=== PATIENT | female | born 1960 | race Caucasian/White ===

== ENCOUNTER 2021-12-03 12:27 | Outpatient (CLI) | payer OTHER, SELFPAY ==
--- NOTE | ~2021-12-03 | MM_ITS ---
EXAMINATION: MM screening xiang BI w best HISTORY: Screening TECHNIQUE: Craniocaudal and mediolateral oblique 3-D tomosynthesis images were obtained and synthetic 2-D images were generated. CAD analysis was submitted and interpreted. COMPARISON: Comparison to multiple prior studies sequentially, with oldest reviewed study dated 05/22. BREAST PARENCHYMAL COMPOSITION: The breasts are heterogeneously dense, which may obscure small masses . FINDINGS: There is no evidence of suspicious mass, calcification, or architectural distortion to sugg est malignancy in either breast. There has been no suspicious interval change. IMPRESSION: 1. No mammographic evidence of malignancy. 2. Recommend routine screening mammography in one year. BI-RADS Category 1: Negative Reviewed, dictated and finalized at location A.
== END 2021-12-03 12:28 | disposition home or self-care (01) ==
LOC: CHSIMG 12:29
PROVIDERS: PCP Internal Medicine; Visit Provider Obstetrics & Gynecology
DX: Z12.31 Encounter for screening mammogram for malignant neoplasm of breast (principal)
CPT/HCPCS: 77063; 77067

== ENCOUNTER 2021-12-15 01:09 | Day surgery (SDC) | payer OTHER, SELFPAY ==
--- NOTE | 2021-12-03 16:09 | PC.NURSE ---
Report to the Outpatient Waiting Room, entrance under the green pavilion located off [facility], at time _1000 on date __12/15/21 . OR Time: __12 PM . - You and your visitor will be asked to self-screen and do not enter if you have any COVID symptoms. - Only one visitor and NO children visitors are allowed at this time. - The patient visitor is requested to leave or wait in car when not with patient due to restrictions. - A mask is required within the hospital. Patients may have clear liquids (water, carbonated beverages, clear teas, apple juice) until 3 hours prior to surgery with a maximum of 20 ounces. - No food from midnight until time of surgery - Infants may have breast milk until 4 hours before surgery, infant formula 6 hours prior to surgery. - Children will be allowed to drink immediately following surgery. If applicable, please bring a bottle or sippy cup to assist with drinking. Juice, water, soda, and popsicles are readily available. For infants on formula, please bring formula the day of surgery. Pacifiers are allowed. Take the following medications with a SIP of water the morning of surgery: Medications to discontinue per physician_VITAMINS Date to take last dose____12/12/21 Please no make-up, nail citizen of [place], hairspray, perfume, deodorant, or body powder the day of surgery. No jewelry (including any body piercings) or valuables the day of surgery, leave them at home. Please take a shower or bath the night before, or the morning of, surgery with an antibacterial soap. Wear comfortable, loose fitting clothing. Children are encouraged to wear pajamas. - Jewelry must be removed prior to entering the operating room. Rings and piercings that are not removed may be cut off. - The hospital will not accept responsibility for valuables. - Please leave all valuables, including medications, at home the day of surgery. If you are going home after surgery, a licensed commercial truck driver must drive you home. - NO public transportation without another adult. - We recommend that an adult stay with you for 24 hours following discharge. - We also recommend that you do not drive, make important decision, drink alcoholic beverages, or take any drugs that were not prescribed by your health care provider for at least 24 hours after your discharge time. For Pediatric surgeries, we recommend two adults accompany the child home (only one inside the building at this time). Follow any additional instructions given to you from your surgeon. If you or anyone in your household have experienced Covid symptoms in the past week, please notify your surgeon or the nurse liaison at the phone number below for possible testing. Telephone instructions given to ___PATIENT and asked if any additional questions and then verbalized understanding. Patient advised to call surgeon office or pre surgery nurse liaison [phone] if any additional questions.
[2021-12-03 16:10] VITALS: BMI 34.0
[2021-12-15] MEDS: ACETAMINOPHEN 500 MG TABLET 1000 MG PO (11:00)
[2021-12-15] MEDS: LACTATED RINGERS 1,000 ML 30 ML IV CONT (11:13)
[2021-12-15 11:30] VITALS: BP 129/77; PULSE 80; RESP 16; TEMP 36.3; O2SAT 97
[2021-12-15 11:30] LABS: Anion Gap 9 mmol/L (8-16); Blood Urea Nitrogen 16 mg/dL (7-17); Calcium 8.8 mg/dL (8.4-10.2); Carbon Dioxide 25 mmol/L (22-30); Chloride 106 mmol/L (98-107); Estimated CRCL calculation 80 ml/min; Estimated Glomerular Filt Rate > 60; Glucose 113 mg/dL (65-110); Potassium 3.9 mmol/L (3.4-5.0); Sodium 140 mmol/L (137-145)
--- NOTE | 2021-12-15 11:51 | PM.IMHP ---
H&P: HPI History of Present Illness Date/Time: 12/15/21 11:51 Chief Complaint: Bleeding Narrative: 61 y/o with several episodes of postmenopausal bleeding. She is known to have a large, fibroid uterus. ultrasound shows poor visualization of the endometrial complex. Review of Systems Review of Systems: All systems reviewed & are unremarkable except as noted in HPI and below PMFSH Past Medical History Medical History Chronic hypertension GERD (gastroesophageal reflux disease) History of goiter Surgical History Surgical History History of thyroid surgery Social History Social History Smoking packs per day: 1 Smoking cigarettes per day: 20.0 Years smoked: 22 Smoking pack-years: 22.00 Smoking status: Former smoker Tobacco type: cigarettes Smoking end date: 04/10/06 Substance use: never Spiritual care concerns: No Meds Home Medications and Allergies Home Medications Medication Instructions Recorded Confirmed Type Adult One Daily Multivitamin 1 tab-cap PO DAILY 12/03/21 12/15/21 History omeprazole magnesium 20 mg 20 mg PO PRN PRN Acid Reflux 12/03/21 12/03/21 History tablet,delayed release (Prilosec OTC) spironolactone 50 mg tablet 50 mg PO DAILY 12/03/21 12/03/21 History verapamil 240 mg tablet,extended 240 mg PO DAILY 12/03/21 12/03/21 History release Allergies Allergy/AdvReac Type Severity Reaction Status Date / Time No Known Drug Allergies Allergy Unknown Other Verified 12/15/21 11:29 Vital Signs Vital Signs - 24 hr 12/15/21 11:30 Temperature 36.3 C L Pulse Rate 80 Respiratory Rate 16 Blood Pressure 129/77 Pulse Oximetry 97 Oxygen Delivery Room Air Exam Const: Orientation/consciousness: patient oriented x3 Other: Well-developed, well-nourished female in no acute distress. Neck: Thyroid: thyroid normal Lymphatic: no lymphadenopathy noted (in neck, axilla or inguinal nodes) Resp: Effort & Inspection: normal respiratory effort Auscultation: clear to auscultation bilaterally Cardio: Rate: regular rate Rhythm: regular rhythm Heart sounds: S1 normal heart sound present and S2 normal heart sound present GI: Other: ABD: Soft, nontender, nondistended. No guarding or rebound tenderness. No hepatosplenomegaly. : General: Yes no CVA tenderness Other: External genitalia: normal female hair distribution, without lesion. Urethral meatus: no lesion, non prolapsed. Bladder: no mass, nontender Vagina: atrophic, without lesion or discharge. No cystocele or rectocele. Cervix: no lesion or discharge. Uterus: large, globular, nontender Adnexa: no mass or tenderness. Anus/perineum: no lesions, nontender Back/Spine/Pelvis: Back: no CVA tenderness Skin: General skin exam: normal color and no rashes or lesions noted Neuro: General: patient oriented x3 Extrem: Other: Extremities: nontender with no edema Psych: Mental Status: mental status grossly normal Affect: normal affect H&P: Results Labs Labs: [facility] 12/15/21 11:11 Sodium 140 Potassium 3.9 Chloride 106 Carbon Dioxide 25 BUN 16 Creatinine 0.70 Glucose 113 H Calcium 8.8 Assessment and Plan Assessment and plan (1) Postmenopausal bleeding: Code(s): N95.0 - Postmenopausal bleeding Status: Acute Assessment and Plan: A: Postmenopausal bleeding in the setting of large fibroid uterus. P: Offered hysteroscopy with dilation and sharp curettage. She understands risks of surgery to include risks of anesthesia, risks of pain, infection, bleeding, blood products, thromboembolic phenomena and damage to adjacent structures such as bowel, bladder, ureters, blood vessels and nerves. She understands all these risks and elects to proceed with surgery.
--- NOTE | 2021-12-15 11:56 | WPDHPUPDATE1 ---
History and Physical Update Update Date/Time: 12/15/21 11:56 History and Physical has been reviewed, including an updated exam of the patient. There are NO changes in the patient's condition. Risks, benefits, and alternatives have been discussed and questions answered. Patient agrees to proceed with procedure.
--- NOTE | 2021-12-15 12:11 | WPDANESEPPF ---
Anes - Initial Pre Proc Eval Procedure: Operation Date: 12/15/21 12:00 Proposed Procedures p Hysteroscopy Dilation and Curettage - Madhav Parisi MD Date/Time: 12/15/21 12:11 Surgeon: Madhav Parisi MD Pre Op Diagnosis: post menopausal bleeding Patient Data Age: 61 Gender: F Height: 1.63 m Weight: 113 kg Last Vital Signs Temp 97.4 F L 12/15/21 11:30 Pulse 80 12/15/21 11:30 Resp 16 12/15/21 11:30 BP 129/77 12/15/21 11:30 Pulse Ox 97 12/15/21 11:30 O2 Del Method Room Air 12/15/21 11:30 Allergies Allergy/AdvReac Type Severity Reaction Status Date / Time No Known Drug Allergies Allergy Unknown Other Verified 12/15/21 11:29 Home Medications Medication Instructions Recorded Confirmed Type Adult One Daily Multivitamin 1 tab-cap PO DAILY 12/03/21 12/15/21 History omeprazole magnesium 20 mg 20 mg PO PRN PRN Acid Reflux 12/03/21 12/03/21 History tablet,delayed release (Prilosec OTC) spironolactone 50 mg tablet 50 mg PO DAILY 12/03/21 12/03/21 History verapamil 240 mg tablet,extended 240 mg PO DAILY 12/03/21 12/03/21 History release Laboratory Tests 12/15/21 11:11 Sodium 140 mmol/L mmol/L (137-145) Potassium 3.9 mmol/L mmol/L (3.4-5.0) Chloride 106 mmol/L mmol/L (98-107) Carbon Dioxide 25 mmol/L mmol/L (22-30) Anion Gap 9 mmol/L mmol/L (8-16) BUN 16 mg/dL mg/dL (7-17) Creatinine 0.70 mg/dL mg/dL (0.7-1.0) Estim Creat Clear Calc 80 ml/min ml/min Estimated GFR > 60 (59 - ) Glucose 113 mg/dL H mg/dL (65-110) Calcium 8.8 mg/dL mg/dL (8.4-10.2) Patient hx anesthesia problems: none Family hx anesthesia problems: none Results Review: All pre-operative results and documents have been reviewed as part of the pre-operative evaluation. [facility] Past Medical History Medical History Chronic hypertension GERD (gastroesophageal reflux disease) History of goiter Surgical History Surgical History History of thyroid surgery Social History Social History Smoking packs per day: 1 Smoking cigarettes per day: 20.0 Years smoked: 22 Smoking pack-years: 22.00 Smoking status: Former smoker Tobacco type: cigarettes Smoking end date: 04/10/06 Substance use: never Spiritual care concerns: No Anes - Eval Final PreProcedure Day of Procedure 12/15/21 12:11 Patient weight: morbidly obese Heart: regular rate and rhythm Lungs: clear to auscultation Airway: Mallampati scale class II Neurological: alert and oriented Last oral intake: >/= 8 hours ASA classification: III Emergent: no Anesthetic plan: proceed Anesthesia type and monitoring: general GIVS and standard monitoring Results Review: All pre-operative results and documents have been reviewed as part of the pre-operative evaluation. Informed Consent: The patient's anesthetic plan and its attendant risks and benefits were discussed with the patient/family/POA. Questions were solicited and answers provided to the satisfaction of the patient/family/POA.
[2021-12-15] MEDS: LIDOCAINE HCL 1% PF 30 ML VIAL 10 ML INFILTRATE (12:25)
--- NOTE | 2021-12-15 12:43 | W.PM.PROC2 ---
Procedure Note - Detailed Date of Procedure 12/15/21 Pre-op Diagnosis Postmenopausal bleeding Post-op Diagnosis Same Procedure Performed Hysteroscopy Dilation and sharp curettage Surgeon Madhav Parisi MD Anesthesia MAC and Local (1% lidocaine paracervical block) Findings Large fibroid uterus. Atrophic endometrium, submucous fibroid. Description of Procedure The patient was taken to the operating room where she was prepared and draped in the usual sterile fashion in the dorsal lithotomy position. The bladder was drained with a red rubber catheter. A sterile speculum was placed into the vagina. The anterior lip of the cervix was grasped with single-tooth tenaculum. Ten mL of 1% lidocaine was administered in a paracervical block. The cervix was then gently dilated using Hegar dilators until an 8 mm dilator could be passed. Hysteroscopy was performed using sterile saline as a distention medium. Findings are as noted above. Sharp curettage was then performed, and endometrial curettings were collected on a Telfa pad and passed off to be sent to pathology. Hemostasis was excellent. Sponge, lap, needle and instrument counts were correct. The patient was awakened and taken to the recovery room in stable condition. I was present and scrubbed through the entire procedure. Implants None Estimated Blood Loss 30 Drains No Packing No Pathology Yes (Endometrial curettings) Complications None Condition Stable Disposition PACU
[2021-12-15 12:44] VITALS: BP 110/64; PULSE 72; RESP 12; O2SAT 96
[2021-12-15 13:10] VITALS: BP 104/61; PULSE 67; RESP 20
[2021-12-15 13:40] VITALS: BP 126/73; PULSE 61; RESP 20
== END 2021-12-15 13:57 | disposition home or self-care (01) ==
PROVIDERS: Anesthesiology; PCP Internal Medicine; Visit Provider Obstetrics & Gynecology
PROC: 0U5B8ZZ Destruction of Endometrium, Via Natural or Artificial Opening Endoscopic (ICD-10-PCS; CPT 58563; principal; 2021-12-15 12:00)
DX: N95.0 Postmenopausal bleeding (principal); D25.0 Submucous leiomyoma of uterus; I10 Essential (primary) hypertension; K21.9 Gastro-esophageal reflux disease without esophagitis; Z87.891 Personal history of nicotine dependence; E66.01 Morbid (severe) obesity due to excess calories; Z68.41 Body mass index [BMI] 40.0-44.9, adult
CPT/HCPCS: 58558; 36415; 80048; 88305; A9270; J1100; J1885; J2001; J2250; J2704; J3010; J7030; J7120

== ENCOUNTER 2022-12-15 12:26 | Outpatient (CLI) | payer OTHER, SELFPAY ==
--- NOTE | ~2022-12-15 | MM_ITS ---
EXAMINATION: MM screening xiang BI w best HISTORY: Screening mammogram TECHNIQUE: Craniocaudal and mediolateral oblique 3-D tomosynthesis images were obtained and synthetic 2-D images were generated. CAD analysis was submitted and interpreted. COMPARISON: 12/03/2021, 04/2018 bilateral screening mammogram examinations BREAST PARENCHYMAL COMPOSITION: There are scattered areas of fibroglandular density. FINDINGS: There is no evidence of suspicious mass, calcification, or architectural distortion to sugg est malignancy in either breast. There has been no suspicious interval change. IMPRESSION: 1. No mammographic evidence of malignancy. 2. Recommend routine screening mammography in one year. BI-RADS Category 1: Negative Reviewed, dictated and finalized at location A.
== END 2022-12-15 12:27 | disposition home or self-care (01) ==
LOC: CHSIMG 12:27
PROVIDERS: PCP Internal Medicine; Visit Provider Obstetrics & Gynecology
DX: Z12.31 Encounter for screening mammogram for malignant neoplasm of breast (principal)
CPT/HCPCS: 77063; 77067

== ENCOUNTER 2024-01-01 11:58 | Outpatient (CLI) | payer OTHER, SELFPAY ==
--- NOTE | ~2024-01-01 | MM_ITS ---
EXAMINATION: MM screening xiang BI w best HISTORY: Screening TECHNIQUE: Craniocaudal and mediolateral oblique 3-D tomosynthesis images were obtained and synthetic 2-D images were generated. CAD analysis was submitted and interpreted. COMPARISON: Comparison to multiple prior studies sequentially, with oldest reviewed study dated 06/18. BREAST PARENCHYMAL COMPOSITION: Dense: The breasts are heterogeneously dense, which may obscure small masses FINDINGS: There is no evidence of suspicious mass, calcification, or architectural distortion to sugg est malignancy in either breast. There has been no suspicious interval change. IMPRESSION: 1. No mammographic evidence of malignancy. 2. Recommend routine screening mammography in one year. BI-RADS Category 1: Negative Reviewed, dictated and finalized at location B.
== END 2024-01-01 11:59 | disposition home or self-care (01) ==
LOC: CHSIMG 12:01
PROVIDERS: PCP Internal Medicine; Visit Provider Internal Medicine
DX: Z12.31 Encounter for screening mammogram for malignant neoplasm of breast (principal)
CPT/HCPCS: 77063; 77067

== ENCOUNTER 2025-01-01 13:05 | Outpatient (CLI) | payer OTHER, SELFPAY ==
--- OUTSIDE RECORDS SUMMARY | 2013-07-11 09:10 | XMS_ITS | Continuity of Care Document ---
Author Organization [facility] Address [address] [place] [address] [address] [place] [address] Phone Care Team Providers Care Oracle Database Analyst Name Role Phone Korey MANCINI, Jeramy Unavailable Unavailable Allergies, Adverse Reactions, Alerts Substance Reaction Status Criticality ibuprofen Active No Information sulfanilamide Hives/Skin Rash Active No Informat ion Medications Medication Instructions Dosage Effective Dates (start - stop) Status Comments Effexor XR 150 mg capsule,extended release 2 tabs qd - Active [place] 7.5 mg-325 mg tablet take 1 tablet by oral route every 6 hours as needed for pain - Active meloxicam 15 mg tablet take 1 tablet by oral route every day 15 MG - Active Ambien 10 mg tablet take 1 tablet by ora l route every day at bedtime as needed 10 MG - Active Antacid 550 mg-110 mg chewable tablet prn - Active cranberry 400 mg capsule 1 po qd - Active Milk Thistle Extract 140 mg capsule po qd - Active Vitamin D3 1,000 unit capsule 2 po qd - Active Procedures Procedure Date URINE DIPSTICK OCCULT BLOOD TEST PAP SMEAR/ SPECIMEN COLLECTION 14 PREV VISIT, EST, AGE 40-64 OFFICE/OUTPATIENT VISIT, EST OFFICE/OUTPATIENT VISIT, NEW Advance Directives Directive Yes / No Effective Date File Name No Information Encounters Encounter Description Practice Location Reason(s) For Visit Diagnoses Date Provider Providers Copied on Encounter [facility], [address], [place], [place], [id number], [place] tel:[phone] [facility] No Information 4 Korey Deshpande. [address], [address], [place], [address], [place]. tel:[phone] [facility], [address], [place], [id number], [place] [phone] [facility] No Information 4 Korey Deshpande. [address], [address], [place], [address], [place]. [phone] PREV VISIT, EST, AGE 40-64 [facility], [address], [place], [place], [id number], [place] tel:[phone] [facility] preventive exam (chief complaint)c hronic pain (chief complaint) Gynecological ExaminationGENER AL PHYSICAL EXAMCHRONIC PAIN SYNDROME 4 [facility]. [address], [address], [place], [place], [id number] , [place]. [phone] Referring Provider: Danielle Barnes, [address], [place], [address] . tel:[phone] OFFICE/OUTPA TIENT VISIT, [facility], [address], [place], [place], [id number], [place] tel:[phone] [facility] ear pain (chief complaint) Temporomandibula r joint disorders, arthralgia of temporomandibula r jointCHRONIC PAIN SYNDROMECervical spondylosis without myelopathyMajor depressive affective disorder, single episode, moderate degree 3 [facility] Danielle. [address], [address], [place], [place], [id number] , . tel:[phone] Referring Provider: Danielle Barnes, [address], [place], [address] . tel:[phone] Family History Family Member Type Diagnosis Age At Onset Problem (finding) Family history of Cance r Father Problem (finding) Cancer Problem (finding) Family history of alcoh olism Payers Payer name Insurance type Covered alliance party ID Authoriza tion(s) [facility] [id number] Social History Type Description Quantity Date Captured Comments Alcohol Use Details Unknown Caffeine Use Details Unknown Tobacco Use Status No Information Smoking Status No Information Smoking Tobacco Use Details Cigarette: Years Used 35 Cigarette: 1 Packs per day, Pack Year: 35 Sex Female Chief Complaint And Reason For Visit No Information Reason For Referral Reason For Referral No Information Plan Of Treatment Date Type Action Status Referral Ordered: MAMMOGRAM, SCREENING ordered Future Order: Lab Order CMP ([id number]), S ent on: Sent Future Order: Lab Order FSH ([id number]), S ent on: Sent Future Order: Lab Order LIPID PA AZRA ([id number]), Sent on: Sent Future Order: Lab Order TSH REFL EX ([id number]), Sent on: Sent Future Order: Lab Order Vitamin D, 25 ([id number]), Sent on: Sent History Of Present Illness Encounter Date Complaint History Of Prese nt Illness chronic pain Hx of neck and b ack pain. C spine was ordered last month but she didn't get it done. Notes several knots on her body that are painful to touch only. L > R lateral hips, R lower leg and ankle. She has been having referred pain from lateral R hip, burning, with aching in the entire thigh. She is almost out of her norco 10s and suggests that maybe she could try 7.5 as she had withdrawl from cutting the 10s in half. She wants to get off the the hydrocodone but had withdrawl symptoms when she cut the 10s in half. preventive exam Last LMP was 02/2011. Her menses is absent. Details: patient had an ablation. Negative for: breast discharge, breast lump(s) and breast pain. Positive for: breast self exam. Pertinent negatives include abnormal bleeding and vaginal discharge. ear pain (comments) Was told she had fluid behind the eardrum and was started on augmentin. she still has an aching in front of her ear. ear pain The patient stat es the earache is in the left ear. Additional information: Previous pt of Dr Corrales but has not had a pcp since he left his practice. Has hx of chronic pain in her neck due to arthritis. Went to [facility] 10 day ago for ear pain and was told she had flui Functional Status Date Functional Assessmen t No Information Instructions Date Instruction Additional Infor mation No Information Assessments Type Assessment Date No Information Patient Care Teams Name Effective Dates (start - stop) Status Members No Information
--- OUTSIDE RECORDS SUMMARY | 2015-04-07 10:30 | XMS_ITS | Continuity of Care Document ---
Author Organization [facility] Address [address] [place] [address] Phone Care Team Providers Care Biomass Plant Technician Name Role Phone Bienvenido Moore MD, MD Unavailable Unavailab le Allergies, Adverse Reactions, Alerts Substance Reaction Status Criticality ibuprofen Active No Information Sulfa (Sulfonamide Antibiotics) Active No Information Medications Medication Instructions Dosage Effective Dates (start - stop) Status Comments RESTASIS 0.05% OPHTH EMULSION 30'S INSTILL ONE DROP IN THE LEFT EYE EVERY 12 HOURS 1 drop - Active AMBIEN (unknown strength) Not Available - Active REFRESH TEARS (unknown strength) Not Available - Active prednisolone acetate 1 % eye drops,suspension instill 1 drop by ophthalmic route 4 times every day into affected eye(s) x 1 week. - No Longer Active doxycycline hyclate 50 mg capsule take 1 capsule by oral route every 12 hours 50 MG - No Longer Active CYMBALTA (unknown strength) Not Available - No Longer Active Procedures Procedure Date REFRACTION POSTOP FOLLOW-UP VISIT EYE EXAM ESTABLISHED PAT Microfluid Analysis Utilizing An [facility] Microfluid Analysis Utilizing An [facility] IMMUNOASSAY, NONANTIBODY IMMUNOASSAY, NONANTIBODY OFFICE/OUTPATIENT VISIT, EST POSTOP FOLLOW-UP VISIT POSTOP FOLLOW-UP VISIT POSTOP FOLLOW-UP VISIT Wavefront Lasik Standard Intralase Lasik Fac Fee 2014 Standard Custom Lasik Fac Fee 5 [facility]front Lasik Standard Intralase Lasik Fac Fee 2014 Standard Custom Lasik Fac Fee 5 Lasik Evaluation Lasik Evaluation Contact lens pmma spherical REFRACTION EYE EXAM & TREATMENT Contact Lens Evaluation OFFICE/OUTPATIENT VISIT, NEW Advance Directives Directive Yes / No Effective Date File Name Resuscitation Not Answered N/A N/A Life Support Not Answered N/A N/A Intubation Not Answered N/A N/A Antibiotics Not Answered N/A N/A IV Fluid Support Not Answered N/A N/A Tube Feed Not Answered N/A N/A Other Directive N/A N/A WARNING:The information contained in this section is historical and is provided for information only and does not constitute a legal document or any assurance that the information is still accurate. Please verify the information with the cunningham of the legal document before using it for clinical purposes. Encounters Encounter Description Practice Location Reason(s) For Visit Diagnoses Date Provider Providers Copied on Encounter [facility], [address] [place] [address], [id number] tel:[phone] [facility] Myopia, bilateralDry eye syndrome of bilateral lacrimal glands 5 Teresa Faria. [facility], [address] [place] [address] [place], [id number]. tel:[phone] [facility], [address] [place] [address] [place], [place], [id number] tel:[phone] [facility] [place] Keratoconjunct sicca, not specified as Sjogren's, bilateralMyopi a, bilateral 0201 5 Rolo Gary. [facility], [address] [place] [address] [place], [id number]. tel:[phone] OFFICE/OUTPA TIENT VISIT, EST [facility], [address] [place], [place], [id number] tel:[phone] RAMSEY Rudd Keratoconjunct sicca, not specified as Sjogren's, bilateral Nov- 2- 5 Rolo OD Abdirahmna. [facility], [address] [place], [place], [id number]. tel:[phone] [facility], [address], [place], [id number] tel:[phone] [facility] Myopia Apr-1 3-201 5 No Information [facility], [address] [place], [place], [id number] tel:[phone] [facility] Myopia Mar-0 9- 5 No Information [facility], [address] [place], [place], [id number] tel:[phone] [facility] MyopiaPresbyop iaTear film insufficiency, unspecified Mar-0 3-201 5 Teresa Faria. [facility], [address], [place], [id number]. tel:[phone] [facility], [address] [place], [place], [id number] tel:[phone] [facility] No Information Jun-0 2- 5 Teresa Faria. [facility], [address] [place], [id number]. tel:[phone] [facility], [address] [place], [place], [id number] tel:[phone] [facility] [place] No Information May-2 6 5 Teresa Faria. [facility], [address] [place], [id number]. tel:[phone] [facility], [address] [place], [id number] tel:[phone] [facility] MyopiaPresbyop iaTear film insufficiency, unspecified 5 Teresa Faria. [facility], [address] [place] [place], [id number]. [phone] [facility], [address] [place], [id number] tel:[phone] RAMSE[facility] [place] MyopiaTear film insufficiency, unspecified 5 No Information [facility], [address] [place], [id number] tel:[phone] [facility] [place] No Information 4 Rolo Gary. [facility], [address] [place], [id number]. tel:[phone] [facility], [address] [place], [id number] tel:[phone] RAM[facility] [place] MyopiaTear film insufficiency, unspecified 4 Rolo Gary. [facility], [address] [place], [id number]. tel:[phone] OFFICE/OUTPA TIENT VISIT, NEW [facility], [address] [place], [id number] tel:[phone] RAMSEY [place] Conjunctivitis , unspecified 3 Alondra Menezes. [facility], [facility] [place] [place], [id number]. tel:[phone] Family History Family Member Type Diagnosis Age At Onset Mother Problem (finding) No Family hist ory of No history of Cardiovascular disease Payers Payer name Insurance type Covered alliance party ID [facility] 12 [id number] Social History Type Description Quantity Date Captured Comments Alcohol Use Details No Caffeine Use Details Unknown Tobacco Use Status Ex-smoker Smoking Status Former smoker Sex Female Chief Complaint And Reason For Visit No Information Reason For Referral Reason For Referral No Information History Of Present Illness Encounter Date Complaint History Of Prese nt Illness No Information Functional Status Date Functional Assessmen t No Information Instructions Date Instruction Additional Infor bruna Myopia, bilateral OU Condition: established, stable. - Discussed both eyes have good vision, right eye has good distance and left eye has good near vision, this is monovision. Blur is not due to vision correction. Related to Myopia, bilateral Insufficiency, tear film, bilateral OU Condition: established, stable. - Does have mild dry eyes that could be causing some blur. Rec continue Restasis twice daily as previously directed and artificial tears as needed through the day. Discussed can put plugs in tear ducts to stop tears from draining while in office today, this could decrease blurry episodes. Discussed low risk and plugs can be removed if do not help. Detailed description of procedure. Patient to schedule appt for plugs. Related to Insufficiency, tear film, bilateral Keratoconjunct sicca , not specified as Sjogren's, OU Condition: established, improving with treatme. - Recommend tear lab testing for dry eye symptoms, reviewed tear lab results with patient. The patient has borderline dry eye OD, OS. Continue with the Restasis drops bid OU. Refrigerate the vials to add a cooling sensation. The patient may also add Refresh Optive or Systane Ultra drops PRN 2-3x/d in addition to the Restasis drops OU. Refrigerate these as well. Related to Keratoconjunct sicca, not specified as Sjogren's, Follow up - Return i n 2-3 weeks with Bienvenido Moore MD for Lasik eval. Related to Myopia, bilateral Myopia, bilateral OU Condition: established slightly worse. - After pinhole testing, it revealed that the patient may have had some residual refractive correction. The OD had become a little more myopic: -0.50 DS. The OS is holding steady at 20/60 at distance, and with -1.75 DS in power it becomes 20/20. This OS was intended to be for near and it works fine for this. Recommended with the patient to see Dr. LONG for a lasik consult to see if a touch up would be advised. Otherwise the patient could wear a daily contact in the OD to see better at distance. Related to Myopia, bilateral Follow up - Return i n 3-4 weeks with Rolo, Abdirahman OD for Quick, Inflammadry, and Tear Lab. Related to Keratoconjunctivitis sicca, not specified as Sjogr Keratoconjunctivitis sicca, not specified as Sjogr OU Condition: established slightly worse. - Rx'd po doxycycline 50 mg capsules bid x 30 days. Use PA 1% i gtt OU QID x 1 week then stop. In the AM and PM use warm compresses. Continue to use Restasis drops bid OU. Follow-up in 1 month with a tear lab and inflammadry test. If the eyes feel worse call to be seen sooner. Related to Keratoconjunctivitis sicca, not specified as Sjogr - Return in 2 months with Gerhard Balbuena OD for post-op. Related to Myopia Myopia - Artificial Tears as needed. Call with changes. Educational materials provided: Related to Myopia Follow up - Return i n 1 month with Gerhard Balbuena OD for post-op. Related to Myopia Myopia - Discontinue Durezol and Ofloxacin. Artifical Tears 4 times per day. From this point foward, things should only get better. Call stat if anything worsens. Educational materials provided:cont restasis bid OU Related to Myopia Follow up - Return in as schedul ed Related to Myopia Myopia OU Condition: established, stable. - s/p Lasik OU - smooth and clear flaps. Continue Ofloxacin TID until gone. Use Durezol 1 drop 2 times daily x 1 week Can use Artificial Tears as needed. ok to d/c goggles. No swimming for 1 week. VA should gradually improve over time. generally within 1-3 weeks. Related to Myopia Presbyopia OU Condit ion: established, stable. - see plan # 1 Related to Presbyopia Tear film insufficie ncy, unspecified OU Condition: established slightly worse. - discussed with patient there is some dryness seen today. OK to r/s restasis this upcoming weekend 1 drop OU BID. ok to use artificial tears as needed. Explained as surface clears vision should begin to improve Related to Tear film insufficiency, unspecified Follow up - lasik with RBP Relat ed to Myopia Presbyopia OU Condit ion: established, stable. - Discussed monovision as an option to reduce dependency on glasses for near vision. Monovision is a compromise of vision and is not perfect. If monovision is not done and both eyes are set for distance then pts will most likely need to wear readers for near tasks. If pt is unable to tolerate monovision then it can always be enhanced for distance.Cost of enhancement is $350. Patient understands may notice increase glare at night time due to monovision. explained may have a pair of glasses made for night driving . demonstrated monovision with loose lenses . Patient. Patient understands and elects to proceed Related to Presbyopia Myopia OU Condition: established, stable. - Discussed Lasik at length with eye model. Intralase newer, safer technology to create thin flap. Lasik can cause dryness and patient may need AT s/p for months. Explained will have some burning / stinging during the day of surgery. The Xanax will help deal with that and give you a good nap. Fully expect patient to be seeing good enough to drive themselves in the next Am. explained to patient after anes wears off there is a periord of up to 3 hours of discomfort. the xanax helps with getting a good nap. 2 % of eyes may need enhancements maybe slightly higher due to high amount of correction needed. . Not many problems with infections due to antibiotic. Dry eye is the number one thing we have to deal with s/p lasik. Patient understand R/B/A and elects to proceed with conventional intralase OD Conventional Intralase OS (mono) . Xanax RX given to patient. Educational materials provided : Lasik video Related to Myopia Myopia OU Condition: established, stable. - discussed with patient due to small pupil size will need to proceed with conventional treatment OU Related to Myopia Tear film insufficie ncy, unspecified OU Condition: established, stable. - explained to patient there is dryness seen today with lissamine green / however not to dry to proceed with lasik. Explained dryness will increase s/p lasik. advised patient to begin restasis use 1 drop OU BID / If unable to tolerate ok to use artificial tears. Related to Tear film insufficiency, unspecified Follow up - Return i n Next available with Bienvenido Moore MD for Lasik eval with RP. Related to Myopia Myopia OU - Return t o clinic for a LASIK evaluation with Dr. Moore. Patient watched eyemaginations LASIK, during the procedure.Educational materials provided:mild RA per pt Related to Myopia Tear film insufficie ncy, unspecified OU - Restasis twice a day in both eyes. Educational materials provided: Related to Tear film insufficiency, unspecified Myopia OU Condition: new prob, no addtl w/u needed. - New glasses Rx given, Stable exam call with vision changes.CLRx given: ELAINE 8.4/14.0 -3.75/-4.00 DS, replace every two weeks, no sleeping in lenses. CL boris: Puremoist. Related to Myopia Follow up - Return i n 1 year with Abdirahman Seth OD for Complete. Related to Myopia Dry Eye Syndrome OU Condition: new prob, no addtl w/u needed. - Monitor, use systane for contacts as a rewetting agent prn. We may consider early use of Restasis if patient elects to go through for lasik. Related to Dry Eye Syndrome Follow up - Return in PRN Relate d to Conjunctivitis, unspecified Conjunctivitis, unsp ecified OU Condition: new prob, no addtl w/u needed. - Discussed with pt that eyes look pretty good today. Possible previous conjuntivitis. Stay out of cl's for 1 week. Explained to pt that sometimes the drops used for infection can become irritating Cut back Cipro one drop three times a day ou for 3-4 days. Pt to call if any worsening. Related to Conjunctivitis, unspecified Assessments Type Assessment Date No Information Patient Care Teams Name Effective Dates (start - stop) Status Members No Information
--- OUTSIDE RECORDS SUMMARY | 2024-03-14 07:24 | XMS_ITS | Continuity of Care Document ---
Author Organization [facility] Address [address] [place] [address] Phone Care Team Providers Care Financial Data Analyst Name Role Phone Brenton MANCINI MD, Kathie Unavailable Unavailable Allergies, Adverse Reactions, Alerts Substance Reaction Status Criticality shrimp Active No Information hydroxyzine Active No Information gabapentin Active No Information ibuprofen Active No Information Sulfa (Sulfonamide Antibiotics) Active No Information pregabalin Active No Information Medications Medication Instructions Dosage Effective Dates (start - stop) Status Comments Unknown Medication patient wears CPAP for sleep apnea - Active Vitamin D3 25 mcg (1,000 unit) tablet take 1 tablet by oral route twice daily - Active Ventolin HFA 90 mcg/actuation aerosol inhaler inhale 1 puff by inhalation route every 4 - 6 hours as needed - Active Amitiza 24 mcg capsule take 1 capsule by oral route 2 times every day with food and water 24 MCG - Active Antacid Extra-Strength 168 mg calcium (420 mg) chewable tablet take as needed - Active hydrocodone 10 mg-acetaminophen 325 mg tablet take 1 tablet by oral route every 4 - 6 hours as needed for pain 1.00 tablet - Active milk thistle 175 mg tablet take two daily - Active oxcarbazepine 300 mg tablet take 1 tablet by oral route every day 300 MG - Active trazodone 100 mg tablet take 0.5 tablet by oral route 2 times every day after meals 50 MG - Active apple cider vinegar 500 mg tablet takes 1 tab po daily - Active duloxetine 30 mg capsule,delayed release take 1 capsule by oral route twice daily - Active loratadine 10 mg tablet take 1 tablet by oral route every day 10 MG - Active Tirosint 75 mcg capsule take 1 capsule by oral route every day 75 MCG - Active venlafaxine ER 150 mg tablet,extended release 24 hr take 1 tablet by oral route every day in the morning at the same time each day with food 150 MG - Active Procedures Procedure Date Echo, 2D Complete ACP Disc And Doc, No Surrogate Documente d Office Visit Telehealth Level 4 021 CTA, W/o Contrast, Calcium Scoring Echo, 2D Complete EKG With Interp And Report New Pt Office Visit Level 4 ACP Disc And Doc, Surrogate Documented D IO-Holter 24 Hr Advance Directives Directive Yes / No Effective Date File Name No Information Encounters Encounter Description Practice Location Reason(s) For Visit Diagnoses Date Provider Providers Copied on Encounter [facility], [address], [place], [address], [place] tel:[phone] Wendy CVM No Information Brenton MANCINI Kathie. [facility], [address], [place], [place], [id number], [place]. tel:[phone] [facility], [address], [place], [address], [place] tel:[phone] DX Wendy CVM Heart disease, unspecifiedN onrheumatic mitral (valve) insufficienc yDyspnea, unspecifiedC hest pain, unspecifiedC ardiac murmur, unspecified Aug-2 5-202 1 No Information Referring Provider: Leatha Rinaldi APN, [facility] [address], [place], [address]. tel:[phone] Office Visit Telehealth Level [address] [facility], [address], [place], [address], [place] tel:[phone] [place] CVM Cardiovascul ar Review (chief complaint) ROGERS (dyspnea on exertion)Non rheumatic mitral valve regurgitatio n 1 Nimco Zhang. [facility], [address], [place], [place], [id number], [place]. tel:[phone] Referring Provider: Leatha Rinaldi APN, [facility] [address], [place], [address]. tel:[phone] [facility], [address], [place], [address], [place] tel:[phone] DX [place] CVM Chest pain, unspecifiedD yspnea, unspecified 0 Chris Martinez. [facility], [address], [place], [place], [id number], [place]. tel:[phone] Referring Provider: Michelle Mohamud, [facility] [address], [place], [address]. tel:[phone] [facility], [address], [place], [address], [place] tel:[phone] DX Wendy CVM Nonrheumatic mitral (valve) insufficienc yDyspnea, unspecifiedC hest pain, unspecifiedC ardiac murmur, unspecified 201 9 No Information Referring Provider: Michelle Mohamud, [facility] [address], [place], [address]. tel:[phone] New Pt Office Visit Level [address] [facility], [address], [place], [address], [place] tel:[phone] [facility] CV Chest Pain (chief complaint)Dy spnea (chief complaint)Ca rdiovascular Review (chief complaint) Chest painDyspneaM urmur, cardiac 9 Chris Martinez. [facility] , [address], [place], [place], [id number], [place]. tel:[phone] Referring Provider: Lorie Caraballo, [facility], [place], [address]. tel:[phone] [facility], [address], [place], [address], [place] tel:[phone] [facility] No Information 2 Deo Rodriguez. [facility] , [address], [place], [place], [id number], [place]. tel:[phone] Referring Provider: Clif Corrales [address], [address]. tel:[phone] Family History Family Member Type Diagnosis Age At Onset Sister Problem (finding) malignant neoplasm of l michell Father Problem (finding) Cancer, unknown Payers Payer name Insurance type Covered libertarian ID Authormukesha reyna(s) [facility] [id number] Social History Type Description Quantity Date Captured Comments Alcohol Use Details Unknown Caffeine Use Details Unknown Tobacco Use Status No Information Smoking Status No Information Sex Female Chief Complaint And Reason For Visit No Information Reason For Referral Reason For Referral No Information Plan Of Treatment Date Type Action Status Future Order: Radiology Order Ec ho Complete ([place]), Appointment on: , Collected on: Ordered Future Order: Radiology Order CT Calcium Score (CT), Appointment on: , Collected on: Ordered Future Order: Radiology Order Ec carolee Gallegos ([place]), Appointment on: , Collected on: Ordered History Of Present Illness Encounter Date Complaint History Of Prese nt Illness Cardiovascular Review She has begum d no chest discomfort suggestive of ischemia. The patient denies orthopnea, PND, ROGERS, or edema. Ms. Brown has not had palpitations, syncope or near syncope. She denies claudication. There is no discoloration or ulceration of the lower extremities. She has had no TIA or stroke-like symptoms. The patient has no symptoms attributable to valvular heart disease. Chest Pain The patient comp lains of chest discomfort. The patient rates the pain as moderate. The discomfort is located in the substernal area. The patient describes the pain as pressure. It is associated with dyspnea and nausea. Dyspnea Cardiovascular Review The patien t has symptoms suggestive of atypical chest pain. Ms. Brown has ROGERS. She denies orthopnea, PND or edema. Ms. Brown has not had palpitations, syncope or near syncope. She denies claudication. There is no discoloration or ulceration of the lower extremities. She has had no TIA or stroke-like symptoms. The patient has no symptoms attributable to valvular heart disease. Functional Status Date Functional Assessmen t No Information Instructions Date Instruction Additional Infor bruna Healthy Choice Educational Mater ials PCP Wellness Visit PCP Wellness Visit Assessments Type Assessment Date No Information Patient Care Teams Name Effective Dates (start - stop) Status Members No Information
--- OUTSIDE RECORDS SUMMARY | 2024-09-26 05:37 | XMS_ITS | Continuity of Care Document ---
Author Organization [facility] Address [address] [address] Phone Care Team Providers Care Race Engine Builder Name Role Phone Caren Santy CAMPOSssica Unavailable Unavailable Allergies, Adverse Reactions, Alerts Substance Reaction Status Criticality pregabalin Active No Information ibuprofen Active No Information Sulfa (Sulfonamide Antibiotics) Active No Information Medications Medication Instructions Dosage Effective Dates (start - stop) Status Comments Estrace 0.01% (0.1 mg/gram) vaginal cream Apply one gram to the vaginal opening/vault 3-4 times a week; do NOT use applicator - Active AZO BLADDER CONTROL (unknown strength) Not Available - Active FLONASE ALLERGY RELIEF (unknown strength) Not Available - Active HYDROCODONE BITARTRATE ER (unknown strength) Not Available - Active GLUCOSAMINE CHONDROITIN (unknown strength) Not Available - Active ATORVASTATIN CALCIUM (unknown strength) Not Available - Active MAGNESIUM (unknown strength) Not Available - Active levothyroxine 13 mcg capsule take 1 capsule by oral route every day 13 MCG - Active fexofenadine 60 mg tablet take 1 tablet by oral route 2 times every day 60 MG - Active lisinopril 5 mg tablet take 1 tablet by oral route every day 5 MG - Active metformin 500 mg tablet take 1 tablet by oral route 2 times every day with morning and evening meals 500 MG - Active omeprazole 20 mg capsule,delayed release take 1 capsule by oral route every day 30 minutes to 1 hour before a meal 20 MG - Active trazodone 50 mg tablet take 1 tablet by oral route 3 times every day after meals 50 MG - Active duloxetine HCl (bulk) 100 % powder - Active Procedures Procedure Date OV - Established Patient Urinalysis - Automated OV - Established Patient Urinalysis - Automated LOCM 300-399mg/ml Iodine, 1ml 30 2023 LOCM 300-399mg/ml Iodine, 1ml [address] Abd/Pelvis W/O & W Contrast LOCM 300-399mg/ml Iodine, 1ml Cystourethroscopy Urinalysis - Automated OV - Established Patient Urinalysis - Automated OV - Established Patient Urinalysis - Automated OV - Established Patient Urinalysis - Automated OV - Established Patient Urinalysis - Automated OV - New Patient Urinalysis - Automated Advance Directives Directive Yes / No Effective Date File Name No Information Encounters Encounter Description Practice Location Reason(s) For Visit Diagnoses Date Provider Providers Copied on Encounter [facility], [address] [place] [address], [id number], [place] tel:[phone] [facility] No Information 5 Caren Odell. [address] [place] [address], [id number] , [place]. tel:[phone] OV - Established Patient [facility], [address] [place] [address], [id number], [place] tel:[phone] [facility] Postmenopausal atrophic vaginitisBenign essential microscopic hematuria 5 Caren Odell. [address] [place] [address], [id number] , [place]. tel:[phone] Referring Provider: Clif Hernandez, [address] [place] [address], [id number]. tel:[phone] OV - Established Patient [facility], [address] [place] [address], [id number], [place] tel:[phone] [facility] Personal history of urinary (tract) infections 5 Anwar Taha. [address] [place] [address], [id number] , [place]. tel:[phone] Referring Provider: [address], [place], [address]. tel:[phone] [facility] , [address] [place] [address], [id number], [place] tel:[phone] [facility] Hematuria, unspecifiedBenign essential microscopic hematuria 4 Anwar Taha. [address] [place] [address], [id number] , [place]. tel: [phone] Referring Provider: [address], [place], [address]. tel:[phone] OV - Established Patient [facility] , [address] [place] [address], [id number], [place] tel: [phone] [facility] Hematuria, unspecifiedPerson al history of urinary (tract) infectionsPostmen opausal atrophic vaginitis 4 Caren Odell. [address] [place] [address], [id number] , [place]. tel: [phone] Referring Provider: [address], [place], [address]. tel:[phone] OV - Established Patient [facility], [address] [place] [address], [id number], [place] tel:[phone] [facility] Personal history of urinary (tract) infectionsPersona l history of urinary (tract) infections 3 Frandy Sams. [address] [place] [address], [id number] . tel: [phone] Referring Provider: [address], [place], [address]. tel:[phone] OV - Established Patient [facility] , [address] [place] [address] [employer], [id number], [place] tel:[phone] [facility] Personal history of urinary (tract) infections 3 Frandy Sams. [address] [place] [address], [id number] . tel:[phone] Referring Provider: [address], [place], [address]. tel:[phone] OV - Established Patient [facility], [address] [place] [address] [facility] [place], [place], [id number], [place] tel:[phone] [facility] Personal history of urinary (tract) infections 3 Frandy Sams. [address] [place] [address], [id number] . tel:[phone] Referring Provider: [address], [place], [address]. tel:[phone] OV - New Patient [facility] , [address] [place] [address] [place], [place], [id number], [place] tel:[phone] [facility] Personal history of urinary (tract) infectionsOveract ashley bladderUrge incontinenceConst ipation, unspecified 2 Anwar Taha. [address] [place] [address], [id number] , [place]. tel:[phone] Referring Provider: [address], [place], [address]. tel:[phone] [facility] , [address] [place] [address] [place], [place], [id number], [place] tel:[phone] [facility] No Information 2 Raynesherylepifanio Jaramillo. [address] [place] [address], [id number] , [place]. tel: [phone] Family History Family Member Type Diagnosis Age At Onset No Information Payers Payer name Insurance type Covered green party ID Toribio orellana(s) [employer] [id number] Medicare [id number] Social History Type Description Quantity Date Captured Comments Sex Female Smoking Status No Information Chief Complaint And Reason For Visit No [...]
--- NOTE | ~2025-01-01 | MM_ITS ---
EXAMINATION: MM screening xiang BI w best HISTORY: Screening TECHNIQUE: Craniocaudal and mediolateral oblique 3-D tomosynthesis images were obtained and synthetic 2-D images were generated. CAD analysis was submitted and interpreted. COMPARISON: 12/03/2021 BREAST PARENCHYMAL COMPOSITION: The breasts are heterogeneously dense, which may obscure small masses. FINDINGS: There is no evidence of suspicious mass, calcification, or architectural distortion to suggest malignancy. There has been no suspicious interval change. IMPRESSION: 1. No mammographic evidence of malignancy. Recommend routine screening mammography in one year. BI-RADS Category 2: Benign finding(s) Reviewed, dictated and finalized at location Q. IMPRESSION: 1. No mammographic evidence of malignancy. Recommend routine screening mammogra phy in one year. BI-RADS Category 2: Benign finding(s)
--- OUTSIDE RECORDS SUMMARY | 2025-01-01 13:08 | XMS_ITS | Clinical Summary ---
Author Organization [facility] Address [address] [place] [address] Care Team Providers Care Engineering Documentation Specialist Name Role Phone Unavailable Primary Care Provider Unavailabl e Social History Tobacco Use Types Packs/Day Years Used Date Smoking Tobacco: Never Assessed Comments Unknown Sex and Gender Information Value Date Recorded Sex Assigned at Not on file Legal Sex Female 10:23 PM CDT Gender Identity Not on file Sexual Orientation Not on file Plan of Treatment Health Maintenance Due Date Last Done Comments Cervical Cancer Screening Pa p Smear (Age 30 to 64) Every 3 Years 1961 Colorectal Cancer Screening Colonoscopy (10 Years) 1961 Annual Physical 1964 Hepatitis C 08/12/1979 DTaP, Tdap and Td Vaccines ( 1 - Tdap) 1980 Cervical Cancer Screening Pa p with HPV Testing (Age 30 to 64) Every 5 Years 08/12/1991 Cervical Cancer Screening with HPV 08/12/1991 Mammogram Screening 2001 Pneumococcal Vaccine: 50+ Ye ars (1 of 1 - PCV) 08/12/2011 Zoster Vaccines (1 of 2) 08/12/2011 COVID-19 Vaccine ( - 2023-2 5 season) 2024 RSV Immunization or 60+ Years (1 - 1-dose 75+ series) 2036 Meningococcal B Vaccine Aged Out No l onger eligible based on patient's age to complete this topic Meningococcal Vaccine Aged Out No henok rosalina eligible based on patient's age to complete this topic RSV Immunizations Under 20 Months Aged Out No longer eligible based on patient's age to complete this topic
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
== END 2025-01-01 13:06 | disposition home or self-care (01) ==
LOC: CHSIMG 13:05
PROVIDERS: PCP Internal Medicine; Visit Provider Internal Medicine
DX: Z12.31 Encounter for screening mammogram for malignant neoplasm of breast (principal)
CPT/HCPCS: 77063; 77067